=== PATIENT | female | born 1945 | race Caucasian/White ===

== ENCOUNTER 2018-01-30 03:03 | Inpatient (IN) | payer OTHER ==
[~2018-01-30] VITALS: Ht 152.4 cm; Wt 61.7 kg
[2018-01-30] MEDS ORDERED: SYNTHROID112 MCG (03:24)
[2018-02-07] MEDS ORDERED: DURAGESIC1 EAC1 TD (08:32)
[2018-02-07] MEDS ORDERED: TRAM1TAB98 PO (08:32)
== END 2018-02-07 12:53 | disposition home or self-care (01) | DRG 389 ==
LOC: ER 03:03 → SURH 16:54 → SEC-K 16:54 → SURH 20:41
PROC: BW21Y0Z Computerized Tomography (CT Scan) of Abdomen and Pelvis using Other Contrast, Unenhanced and Enhanced (ICD-10-PCS; 2018-01-30)
PROC: 3E0336Z Introduction of Nutritional Substance into Peripheral Vein, Percutaneous Approach (ICD-10-PCS; 2018-02-01)
PROC: 0DJD8ZZ Inspection of Lower Intestinal Tract, Via Natural or Artificial Opening Endoscopic (ICD-10-PCS; principal; 2018-02-03)
PROC: B54NZZZ Ultrasonography of Left Upper Extremity Veins (ICD-10-PCS; 2018-02-06)
DX: K56.690 Other partial intestinal obstruction (principal); C34.11 Malignant neoplasm of upper lobe, right bronchus or lung; C78.6 Secondary malignant neoplasm of retroperitoneum and peritoneum; I82.612 Acute embolism and thrombosis of superficial veins of left upper extremity; E03.8 Other specified hypothyroidism